=== PATIENT | male | born 1945 | race Caucasian/White ===

== ENCOUNTER → 2017-06-17 | Outpatient (CLI) | payer MEDICARE, OTHER ==
[~2017-06-17] MED LIST: LORT5TAB PO
--- NOTE | 2017-06-17 13:09 | RADRPT ---
EXAM DATE/TIME: 06/17/2017 12:18 [place] COMPARISON: CT BRAIN W/O CONTRAST, September 02, 2011, 15:16. INDICATIONS : new onset right side weakness for three weeks; know brain mass. RADIATION DOSE: 35.93 CTDIvol (mGy) MEDICAL HISTORY : Brain mass. SURGICAL HISTORY : None. ENCOUNTER: Initial ACUITY: 3 weeks PAIN SCALE: 0/10 LOCATION: cranial TECHNIQUE: Multiple contiguous axial images were obtained of the head. Using automated exposure control and adj ustment of the mA and/or kV according to patient size, radiation dose was kept as low as reasonably a chievable to obtain optimal diagnostic quality images. DICOM format image data is available electro nically for review and comparison. 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 This measures 8.4 x 7.5 cm. 1 cm of subfalcine herniation to the left is again noted. Diffuse cerebral atrophy is stabl e. There is no acute infarct, acute hemorrhage, or extra-axial bleed. CONCLUSION: 1. 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 2. No acute infarct, acute hemorrhage or extra-axial bleed. 3. Diffuse cerebral atrophy. Stan Diego MD on June 17, 2017 at 13:04 Board Certified Radiologist. This report was verified electronically.
== END ==
LOC: HRAD 11:44
PROVIDERS: ATTEND Family Medicine
DX: R53.1 Weakness (principal); R22.0 Localized swelling, mass and lump, head
CPT/HCPCS: 70450